=== PATIENT | male | born 1945 | race Caucasian/White ===

== ENCOUNTER 2016-12-22 12:42 | Emergency (ER) | payer MEDICARE ==
[2016-12-22] MEDS ORDERED: SODIUM CHLORIDE FLUSH 0.9% 10 ML SYRINGE IVP ONE (13:27)
[2016-12-22] MEDS ORDERED: IPRATROPIUM/ALBUTEROL 3 ML NEB INH STA ×2 (13:28→15:03)
[2016-12-22] MEDS ORDERED: methylPREDNISolone SUCCINATE 125 MG/2 ML VIAL IVP STA (13:29)
--- NOTE | 2016-12-22 13:31 | ED Physician Documentation ---
History of Present Illness - Stated complaint Stated Complaint: SOA - Chief complaint Chief Complaint: Resp - History obtained from History obtained from: Patient - Additonal information Additional information: Patient is a 71-year-old man visiting from [place]. He is here with the chief complaint of shortness of breath. The shortness of breath is been present for 3 days. He denies any chest pain, fever, cough, or chills. There is no nausea, vomiting constipation or diarrhea. He has no lower urinary symptoms. This patient does have a history of congestive heart failure, atrial fibrillation, COPD, hypertensive heart disease, and diabetes. He believes the smoke may have played a factor. He just feels like he cannot take a deep breath. He is on Pradaxa for atrial fibrillation so he is already anticoagulated. He forgot his inhaler at home. He is going to be out in our area for another week or so. Review of systems: For pertinent positive and negatives in the review of systems please see the history of present illness, otherwise all other systems have been reviewed and are negative. Dragon disclaimer: Parts of this medical record were created using voice recognition technology. Because of the inherent limitations of this system, occasional same sounding word substitutions do occur and persist despite proofreading. Please read the document for context. PD PAST MEDICAL HISTORY - Past Medical History Past Medical History: Yes Cardiovascular: Congestive heart failure, Hypertension, High cholesterol, Atrial fibrillation Respiratory: COPD, Shortness of breath Neuro: Headache/migraine : Benign prostate hypertrophy Psych: Depression Other Past Medical History: sleep apnea, Edema, Hyperaldosteronism, zenkers diverticulum, hydrocele, - Past Surgical History Past Surgical History: Yes - Present Medications Home Medications: Ambulatory Orders Medication Instructions Recorded Confirmed Albuterol Sulf [Ventolin Hfa 1 - 2 puffs INH Q4HR PRN #1 inhaler 12/22/16 Inhaler] Hydrocodone/Acetaminophen 1 each PO TID PRN #16 tablet 12/22/16 [Hydrocodon-Acetaminophn 10-325] Prednisone 40 mg PO DAILY #8 tablet 12/22/16 busPIRone [Buspar] 200 mg PO ONCE #16 tablet 12/22/16 - Allergies Allergies/Adverse Reactions: Allergies Allergy/AdvReac Type Severity Reaction Status Date / Time No Known Drug Allergies Allergy Verified 12/22/16 12:50 - Social History Does the pt smoke?: No Smoking Status: Never smoker Does the pt drink ETOH?: No Does the pt have substance abuse?: No - Immunizations Immunizations are current?: Yes - POLST Patient has POLST: No PD ED PE NORMAL - Vitals Vital signs reviewed: Yes - General General: Alert and oriented X 3, No acute distress, Well developed/nourished - HEENT HEENT: Atraumatic, PERRL - Neck Neck: Supple, no meningeal sign, No bony TTP - Cardiac Cardiac: RRR, No murmur, No gallop, No rub - Respiratory Respiratory: No respiratory distress (Markedly diminished breath sounds bilaterally without wheeze rales or rhonchi, prolonged expiratory phase), Other - Abdomen Abdomen: Normal bowel sounds, Soft, Non tender, Non distended - Derm Derm: Normal color, Warm and dry - Extremities Extremities: No edema (1+ chronic appearing edema bilateral lower extremities) - Neuro Neuro: Alert and oriented X 3 - Psych Psych: Normal mood, Normal affect Results - Vitals Vitals: Vital Signs - 24 hr 12/22/16 12/22/16 12/22/16 12:47 14:04 15:49 Temperature 36.2 C L Heart Rate 72 60 83 Respiratory 26 H 20 23 Rate Blood Pressure 168/92 H 170/59 H 196/87 H O2 Saturation 98 96 94 Oxygen O2 Source Room air - Labs Labs: Laboratory Tests 12/22/16 12/22/16 12/22/16 13:27 13:27 13:27 WBC RBC Hgb Hct MCV MCH MCHC RDW Plt Count MPV Neut # Lymph # Overton # Eos # Baso # Absolute Nucleated RBC Nucleated RBCs PT 13.2 H INR 1.2 Sodium 142 Potassium 3.7 Chloride 106 Carbon Dioxide 30 Anion Gap 6.0 BUN 13 Creatinine 0.7 Estimated GFR (MDRD) 111 Glucose 105 H Calcium 8.5 Total Bilirubin 0.6 AST 25 ALT 46 Alkaline Phosphatase 93 Troponin I < 0.04 B-Natriuretic Peptide Total Protein 6.8 Albumin 3.7 Globulin 3.1 Albumin/Globulin Ratio 1.2 Lipase 34 Urine Color Urine Clarity Urine pH Ur Specific Kindred Urine Protein Urine Glucose (UA) Urine Ketones Urine Occult Blood Urine Nitrite Urine Bilirubin Urine Urobilinogen Ur Leukocyte Esterase Ur Microscopic Review Urine Culture Comments 12/22/16 12/22/16 12/22/16 13:27 13:27 15:50 WBC 10.5 RBC 4.00 L Hgb 13.1 L Hct 38.9 L MCV 97.3 H MCH 32.8 H MCHC 33.7 RDW 14.1 Plt Count 178 MPV 8.8 Neut # 8.3 H Lymph # 1.2 L Overton # 0.8 Eos # 0.1 Baso # 0.1 Absolute Nucleated RBC 0.00 Nucleated RBCs 0.0 PT INR Sodium Potassium Chloride Carbon Dioxide Anion Gap BUN Creatinine Estimated GFR (MDRD) Glucose Calcium Total Bilirubin AST ALT Alkaline Phosphatase Troponin I B-Natriuretic Peptide 211 H Total Protein Albumin Globulin Albumin/Globulin Ratio Lipase Urine Color LIGHT YELLOW Urine Clarity CLEAR Urine pH 6.0 Ur Specific Kindred 1.010 Urine Protein NEGATIVE Urine Glucose (UA) NEGATIVE Urine Ketones NEGATIVE Urine Occult Blood NEGATIVE Urine Nitrite NEGATIVE Urine Bilirubin NEGATIVE Urine Urobilinogen 0.2 (NORMAL) Ur Leukocyte Esterase NEGATIVE Ur Microscopic Review NOT INDICATED Urine Culture Comments NOT INDICATED PD MEDICAL DECISION MAKING - ED course ED course: 71-year-old man with history of hypertension diabetes, COPD and congestive heart failure. He presents with dyspnea for 3 days. On examination he is very diminished and improved significantly with DuoNeb's 2, magnesium, and Solu- Medrol suggesting a bronchospastic component. His x-ray showed mild cardiomegaly and mild pulmonary vascular congestion. His BNP was only minimally elevated so I suspect it is mainly COPD however he was given a single dose of Lasix 60 mg IV push. He has diuresed and at present feels wonderful. His lungs are clear is breathing comfortably. I do not think there is any evidence of cardiac ischemia. His EKG shows atrial fibrillation which she is in chronically. There is a right bundle branch block. The QRS and QT intervals are normal there is no ST segment elevation depression or inversion. Patient's troponin is normal the rest of his labs are within normal limits. He is on vacation here and I suspect he has been having some dietary indiscretions. I have recommended that he increase his Lasix to double dose or 80 mg for 2 additional days then resume as normal. He also requested that I write for a couple of his medications since he is running low and is out of town. Disposition: To home Clinical impression: 1. Acute COPD exacerbation 2. Mild pulmonary vascular congestion 3. Atrial fibrillation-chronic 4. Medication refill Departure - Departure Disposition: Home, Self Care Clinical Impression: Moderate COPD (chronic obstructive pulmonary disease) Condition: Good Instructions: COPD Dc Prescriptions: Albuterol Sulf [Ventolin Hfa Inhaler] 1 - 2 puffs INH Q4HR PRN #1 inhaler PRN Reason: Shortness Of Air/Wheezing busPIRone [Buspar] 200 mg PO ONCE #16 tablet Hydrocodone/Acetaminophen [Hydrocodon-Acetaminophn 10-325] 1 each PO TID PRN # 16 tablet PRN Reason: Pain Prednisone 40 mg PO DAILY #8 tablet Comments: I think your shortness of breath here today was mostly due to bronchospasm from a mild COPD attack. I am recommending that you take prednisone and use her albuterol inhaler regularly for the next several days. Be careful because of prednisone may make her blood sugar elevated. I also be very careful of eating salt containing foods since it looked like you might of had a very small component of congestive heart failure. I would double your Lasix for 2 additional days and then resume at the normal dose.
[2016-12-22 13:38] LABS: BASOPHILS # (AUTO) 0.1 10^3/uL (0.0-0.1); BASOPHILS % (AUTO) 0.7 %; EOSINOPHILS # (AUTO) 0.1 10^3/uL (0.0-0.7); LYMPHOCYTES # (AUTO) 1.2 10^3/uL (1.5-3.5); UNCORRECTED WHITE BLOOD COUNT 10.5 x10^3/uL; WHITE BLOOD COUNT 10.5 x10^3/uL (4.8-10.8)
[2016-12-22] MEDS ORDERED: IPRATROPIUM/ALBUTEROL 3 ML NEB INH ONE ×2 (13:38→14:52)
[2016-12-22] MEDS: MAGNESIUM SULFATE 2 GRAM 50 ML IV ONE ×2 (13:40→13:45)
[2016-12-22 13:41] LABS: EOSINOPHILS % (AUTO) 0.6 %; HCT - HEMATOCRIT 38.9 % (42.0-52.0); HGB - HEMOGLOBIN 13.1 g/dL (14.0-18.0); LYMPHOCYTES % (AUTO) 11.6 %; MEAN CORPUSCULAR HEMOGLOBIN 32.8 pg (27.0-31.0); MEAN CORPUSCULAR HGB CONC 33.7 g/dL (32.0-36.0); MEAN CORPUSCULAR VOLUME 97.3 fL (80.0-94.0); MEAN PLATELET VOLUME 8.8 fL (7.4-11.4); MONOCYTES # (AUTO) 0.8 10^3/uL (0.0-1.0); MONOCYTES % (AUTO) 7.4 %; NEUTROPHILS # (AUTO) 8.3 10^3/uL (1.5-6.6); NEUTROPHILS % (AUTO) 79.7 %; RED CELL DISTRIBUTION WIDTH 14.1 % (12.0-15.0)
[2016-12-22] MEDS ORDERED: methylPREDNISolone SUCCINATE 125 MG/2 ML VIAL ONE (13:44)
[2016-12-22] MEDS ORDERED: MAGNESIUM SULFATE 2 GRAM 50 ML IV ONE (13:44)
[2016-12-22 13:45] LABS: INR 1.2 (0.8-1.2); PT - PROTHROMBIN TIME 13.2 secs (9.9-12.6)
[2016-12-22 13:54] LABS: ALBUMIN/GLOBULIN RATIO 1.2 (1.0-2.2); BILIRUBIN,TOTAL 0.6 mg/dL (0.2-1.0); CALCIUM 8.5 mg/dL (8.5-10.3); CREATININE 0.7 mg/dL (0.6-1.2); POTASSIUM 3.7 mmol/L (3.5-5.0); TOTAL PROTEIN 6.8 g/dL (6.7-8.2)
--- NOTE | 2016-12-22 14:13 | XRAY Preliminary Report ---
Exam: XR Chest 1 View IMPRESSION: Cardiomegaly with pulmonary vascular congestion, suggesting mild CHF. [facility] SITE ID: [id number]
--- NOTE | 2016-12-22 14:16 | XRAY Report ---
EXAM: CHEST RADIOGRAPHY EXAM DATE: 12/22/2016 01:35 PM. CLINICAL HISTORY: Dyspnea. COMPARISON: None. TECHNIQUE: 1 view. FINDINGS: Lungs/Pleura: Diffuse vascular engorgement. No focal consolidation, pleural effusion, or pneumothorax . Mediastinum: Cardiomegaly. The aorta is mildly tortuous. Other: The bones are unremarkable. IMPRESSION: Cardiomegaly with pulmonary vascular congestion, suggesting mild CHF. [facility] Referring Provider Line: [phone] SITE ID: [id number]
[2016-12-22] MEDS ORDERED: HYDROcod/ACETAM 5/325 MG TABLET PO STA (14:33)
[2016-12-22] MEDS ORDERED: FUROSEMIDE 40 MG/4 ML VIAL IVP STA (14:35)
[2016-12-22] MEDS ORDERED: HYDROcod/ACETAM 5/325 MG TABLET ONE (14:40)
[2016-12-22] MEDS ORDERED: FUROSEMIDE 20 MG/2 ML VIAL IVP ONE (14:45)
[2016-12-22] MEDS ORDERED: FUROSEMIDE 40 MG/4 ML VIAL ONE (14:45)
[2016-12-22 16:07] LABS: BILIRUBIN,URINE NEGATIVE (NEGATIVE)
[2016-12-22 16:08] LABS: UA CHARGE (STRIP ONLY) YES; UR CULTURE IF IND NOT INDICATED
[2016-12-22 18:01] VITALS: BP 186/77
--- NOTE | 2016-12-23 15:36 | ED Physician Documentation ---
ED Addendum - Addendum Addendum: 12/23/16 15:35 Took call from pharmacy, there was some question about his prescription. The prescription in the computer was for Wellbutrin, but evidently it was crossed out and written for buspirone, but the dose of 200 mg was left there. It looks like this was a refill of a chronic medication and it was not documented what he was on originally so I told the pharmacy not to fill it and have the patient call us for any concerns or refills.
== END 2016-12-22 18:01 | disposition home or self-care (01) ==
LOC: ED 12:42
DX: J44.1 Chronic obstructive pulmonary disease with (acute) exacerbation (principal); I11.0 Hypertensive heart disease with heart failure; I50.9 Heart failure, unspecified; E11.9 Type 2 diabetes mellitus without complications; I48.2 Chronic atrial fibrillation; I45.10 Unspecified right bundle-branch block
CPT/HCPCS: 36415; 71010; 80053; 81003; 83690; 83880; 84484; 85025; 85610; 93005; 94640; 96374; 96375; 99284; A9270; J7620; 81001; 87086